=== PATIENT | female | born 1950 | race American Indian/Alaskan Native ===

== ENCOUNTER 2019-08-05 18:34 | Emergency (ER) | payer BC ==
[~2019-08-05] VITALS: Ht 160 cm; Wt 98.4 kg
[~2019-08-05 18:34] MED LIST: ALBU90OI6 INH; Cranberry405 MG PO; FOCUS PO; Hair, Skin & N1 EACH PO; KRILL OIL 3001 EACH PO; MONT10T PO; RXNEOPOLHC AS; SYNTHROID; Synthroid112 MCG PO; [UNRECOGNIZED DRUG - OTHER] PO; [UNRECOGNIZED DRUG - OTHER] PO
[2019-08-05] MEDS ORDERED: IBUP600 PO (19:32)
[2019-08-05] MEDS ORDERED: Robaxin-750750 MG PO (19:32)
[2019-08-05] MEDS ORDERED: Prednisone20 MG PO (19:32)
== END 2019-08-05 19:41 | disposition home or self-care (01) ==
LOC: ER 18:34
DX: M54.16 Radiculopathy, lumbar region (principal); M54.41 Lumbago with sciatica, right side; E03.9 Hypothyroidism, unspecified; Z88.0 Allergy status to penicillin; Z88.1 Allergy status to other antibiotic agents; Z79.899 Other long term (current) drug therapy
CPT/HCPCS: 96372; 99283-25; J1885; J7512

== ENCOUNTER 2024-04-05 06:24 | Day surgery (SDC) | payer OTHER ==
[~2024-04-05] VITALS: Ht 160 cm; Wt 94.4 kg
[~2024-04-05 06:24] MED LIST changes: +Balanced Salt Epinephrine Irrigation Solution 500 mL IR SCH; +IBUP600 PO; +Lidocaine HCl/Pf 1% 5 ML VIAL XX SCH; +Moxifloxacin HCL 0.5 MG/0.1 ML 0.4MLSYR RIGHTEYE SCH; +NS 500 ML IV ONE; +PHENYLEPHRINE\\TROPICAMIDE\\TETRACAINE OPHTHALMIC DILATING SOLN RIGHTEYE PRN; +Povidone-Iodine 450 DROP/30 ML Solution RIGHTEYE SCH; +Prednisone20 MG PO; +Robaxin-750750 MG PO; +Triamcinolone Inj Susp 40 MG / ML 1ML Vial INJ SCH
[2024-04-05] MEDS ORDERED: Triamcinolone Inj Susp 40 MG / ML 1ML Vial ONE (06:33)
[2024-04-05] MEDS ORDERED: Lidocaine HCl/Pf 1% 5 ML VIAL ONE (06:34)
[2024-04-05] MEDS ORDERED: NS 500 ML IV ONE (06:47)
[2024-04-05] MEDS ORDERED: ESOM20 PO (06:56)
[2024-04-05] MEDS ORDERED: Midazolam HCl 1MG / ML 2ML Vial ONE (07:24)
[2024-04-05 07:55] VITALS: BP 144/68
== END 2024-04-05 08:09 | disposition home or self-care (01) ==
LOC: ORSCSDS 06:24
PROVIDERS: Ophthalmology
PROC: 08RJ3JZ Replacement of Right Lens with Synthetic Substitute, Percutaneous Approach (ICD-10-PCS; principal; 2024-04-05 07:30)
DX: H25.811 Combined forms of age-related cataract, right eye (principal); E66.01 Morbid (severe) obesity due to excess calories; Z68.36 Body mass index [BMI] 36.0-36.9, adult; J45.909 Unspecified asthma, uncomplicated; K21.9 Gastro-esophageal reflux disease without esophagitis; E07.9 Disorder of thyroid, unspecified; R73.03 Prediabetes; Z79.899 Other long term (current) drug therapy
CPT/HCPCS: 82947; J2001; J2250; J3301; J7040; V2632

== ENCOUNTER 2024-04-13 07:17 | Day surgery (SDC) | payer OTHER ==
[~2024-04-13] VITALS: Ht 160 cm; Wt 94.0 kg
[~2024-04-13 07:17] MED LIST changes: +ESOM20 PO; +Lidocaine HCl/Pf 1% 5 ML VIAL ONE; +Moxifloxacin HCL 0.5 MG/0.1 ML 0.4MLSYR LEFTEYE SCH; -Moxifloxacin HCL 0.5 MG/0.1 ML 0.4MLSYR RIGHTEYE SCH; +PHENYLEPHRINE\\TROPICAMIDE\\TETRACAINE OPHTHALMIC DILATING SOLN LEFTEYE PRN; -PHENYLEPHRINE\\TROPICAMIDE\\TETRACAINE OPHTHALMIC DILATING SOLN RIGHTEYE PRN; +Povidone-Iodine 450 DROP/30 ML Solution LEFTEYE SCH; -Povidone-Iodine 450 DROP/30 ML Solution RIGHTEYE SCH; +Triamcinolone Inj Susp 40 MG / ML 1ML Vial ONE
[2024-04-13] MEDS ORDERED: NS 500 ML IV ONE ×2 (07:35)
[2024-04-13] MEDS ORDERED: Midazolam HCl 1MG / ML 2ML Vial ONE (08:27)
[2024-04-13 08:52] VITALS: BP 151/78
== END 2024-04-13 09:04 | disposition home or self-care (01) ==
LOC: ORSCSDS 07:17
PROVIDERS: Ophthalmology
PROC: 08RK3JZ Replacement of Left Lens with Synthetic Substitute, Percutaneous Approach (ICD-10-PCS; principal; 2024-04-13 08:30)
DX: H25.812 Combined forms of age-related cataract, left eye (principal); H25.12 Age-related nuclear cataract, left eye; Z96.1 Presence of intraocular lens; R73.03 Prediabetes; J45.909 Unspecified asthma, uncomplicated; E03.9 Hypothyroidism, unspecified; E66.9 Obesity, unspecified; Z68.36 Body mass index [BMI] 36.0-36.9, adult; Z79.899 Other long term (current) drug therapy
CPT/HCPCS: 82947; J2001; J2250; J3301; J7040; V2632